=== PATIENT | male | born 1945 | race Caucasian/White ===

== ENCOUNTER 2023-05-05 11:52 | Day surgery (SDC) | payer OTHER ==
[~2023-05-05] VITALS: Ht 184 cm; Wt 94.6 kg
[2023-05-05] VITALS (7 sets, daily range): BP systolic 98–120; BP diastolic 68–81
[~2023-05-05 11:52] MED LIST: ASPI81CH PO; METF500 PO
[2023-05-05] MEDS ORDERED: Ventolin/Prove6.7 GM INH (12:32)
--- NOTE | 2023-05-05 12:50 | NUR ---
History, Chart, Medications and Allergies reviewed before start of procedure. Ambulatory in Day Surgery. Pre-Op teaching done. Pt verbalizes understanding. Patient confirms NPO status and agrees with scheduled surgery. Patient States Post-Procedure ride home has been arranged.
--- NOTE | 2023-05-05 13:48 | NUR ---
05/05/23 1348 Mani Elias History, Chart, Medications and Allergies reviewed before start of procedure.MONITOR INTACT WITH CONTINUOUS PULSE OXIMETRY, CONTINUOUS END TITAL CO2, AND INTERMITTENT BLOOD PRESSURE.
--- NOTE | 2023-05-05 14:35 | NUR ---
Patient up to Ambulate independently. Gait steady. Discharge instructions reviewed with patient. Patient verbalizes understanding. Copy given to patient to take home. Dressing to procedure site clean, dry, intact with no visible drainage, swelling, erythema or bruising noted. Discharge via ambulation.
[2023-05-05 14:41] LABS: Automated BF RBC Count 0.006 M/mm3 (0-0); Automated BF WBC Count 4.747 K/mm3 (0-999)
[2023-05-05 14:42] LABS: Body Fluid WBC Count 4747 /mm3 (0-999); RBC Count, Body Fluid 6000 /mm3 (0-0)
[2023-05-05 14:55] LABS: Albumin, Body Fluid 2.7 g/dL; Glucose, Body Fluid 81 mg/dL; Lactate Dehydrogenase, Body Fl 351 U/L; Protein, Body Fluid 5.1 g/dL; Triglycerides, Body Fluid 26 mg/dL
[2023-05-05 14:58] LABS: pH, Body Fluid 7.7
[2023-05-05 15:12] LABS: Appearance, Body Fluid Hazy (Clear); Color, Body Fluid Yellow (None-Yellow); Total Cell Count, Body Fluid 100
== END 2023-05-05 23:18 | disposition home or self-care (01) ==
LOC: ORSCMMR 11:52 → ORD 11:52 → ORSCMMR 11:53 → ORD 13:00
PROVIDERS: Student in an Organized Health Care Education/Training Program
PROC: 0W993ZX Drainage of Right Pleural Cavity, Percutaneous Approach, Diagnostic (ICD-10-PCS; principal; 2023-05-05 13:00)
DX: J90 Pleural effusion, not elsewhere classified (principal); J41.1 Mucopurulent chronic bronchitis; C34.91 Malignant neoplasm of unspecified part of right bronchus or lung; R63.4 Abnormal weight loss; F17.210 Nicotine dependence, cigarettes, uncomplicated; Z79.899 Other long term (current) drug therapy
CPT/HCPCS: 71045; 82042; 82945; 82947; 83615; 83986; 84157; 84478; 87070; 87075; 87205; 88108; 88305; 88341; 88342; 89051; C1751

== ENCOUNTER 2023-06-04 11:46 | Day surgery (SDC) | payer OTHER ==
[2023-06-04] VITALS (11 sets, daily range): BP systolic 107–135; BP diastolic 61–102
[~2023-06-04 11:46] MED LIST changes: +Ventolin/Prove6.7 GM INH
--- NOTE | 2023-06-04 14:14 | NUR ---
06/04/23 1414 Mani Elias History, Chart, Medications and Allergies reviewed before start of procedure.MONITOR INTACT WITH CONTINUOUS PULSE OXIMETRY, CONTINUOUS END TITAL CO2, AND INTERMITTENT BLOOD PRESSURE.O2 VIA N/C INTACT THROUGHOUT SEDATION/PROCEDURE. DR TUCKER AT BEDSIDE.
--- NOTE | 2023-06-04 14:44 | NUR ---
Discharge instructions reviewed with patient. Patient verbalizes understanding. Copy given to patient to take home. Pt only recieved a local. Ambulatory out of Day Surgery.
== END 2023-06-04 14:40 | disposition home or self-care (01) ==
LOC: ORD 11:46 → ORSCMMR 11:46 → ORD 11:47 → ORSCMMR 11:49 → ORD 11:49 → ORSCMMR 14:40
PROVIDERS: Student in an Organized Health Care Education/Training Program
PROC: 0W993ZZ Drainage of Right Pleural Cavity, Percutaneous Approach (ICD-10-PCS; principal; 2023-06-04 13:00)
DX: J91.0 Malignant pleural effusion (principal); R06.02 Shortness of breath
CPT/HCPCS: 71045; C1751

== ENCOUNTER 2023-07-16 12:52 | Day surgery (SDC) | payer OTHER ==
[~2023-07-16] VITALS: Ht 190.5 cm; Wt 89.0 kg
[2023-07-16 13:53] VITALS: BP 107/68
--- NOTE | 2023-07-16 13:59 | NUR ---
LUNGS DIMINISHED T/O TO AUSCULTATION, ESPECIALLY RLL POSTERIOR. NO WHEEZING AUSCULTATED.
[2023-07-16] MEDS ORDERED: MORP20L PO (14:04)
[2023-07-16] MEDS ORDERED: Ativan1 MG PO (14:05)
[2023-07-16] MEDS ORDERED: GUAI200 PO (14:06)
[2023-07-16 14:16] VITALS: BP 108/60
[2023-07-16 14:45] VITALS: BP 115/82
[2023-07-16 15:05] VITALS: BP 101/65
[2023-07-16 15:16] VITALS: BP 111/53
--- NOTE | 2023-07-16 15:26 | NUR ---
07/16/23 1526 Mynra Catalan O2 VIA N/C INTACT THROUGHOUT SEDATION/PROCEDURE. PT TOLERATED PROCEDURE WELL. CXR DONE IN ROOM IMMEDIATELY FOLLOWING. BANDAID PLACED OVER SITE BY MONITOR INTACT WITH CONTINUOUS PULSE OXIMETRY, CONTINUOUS END TITAL CO2, AND INTERMITTENT BLOOD PRESSURE.
--- NOTE | 2023-07-16 15:51 | NUR ---
Pt had some nausea upon sitting up. It subsided after 5min, vitals stable. Pt verbilized he was confidenent to discharge. Discharge instructions reviewed with patient. Patient verbalizes understanding. Copy given to patient to take home. Patient States Post-Procedure ride home has been arranged. Discharged via wheelchair to private car for ride home.
== END 2023-07-16 15:35 | disposition home or self-care (01) ==
LOC: ORSCMMR 12:52 → ORD 13:30 → ORSCMMR 15:35
PROVIDERS: Student in an Organized Health Care Education/Training Program
PROC: 0W993ZZ Drainage of Right Pleural Cavity, Percutaneous Approach (ICD-10-PCS; principal; 2023-07-16 13:30)
DX: J91.0 Malignant pleural effusion (principal); R06.02 Shortness of breath; Z79.899 Other long term (current) drug therapy
CPT/HCPCS: 71045; C1751

== ENCOUNTER 2023-08-11 11:03 | Day surgery (SDC) | payer OTHER ==
[~2023-08-11] VITALS: Ht 185.4 cm; Wt 82.9 kg
[2023-08-11] VITALS (15 sets, daily range): BP systolic 85–120; BP diastolic 49–86
[~2023-08-11 11:03] MED LIST changes: +Ativan1 MG PO; +GUAI200 PO; +Lactated Ringer's 1,000 ML IV SCH; +MORP20L PO
[2023-08-11] MEDS ORDERED: PROM25 PO (11:38)
--- NOTE | 2023-08-11 11:41 | NUR ---
PT HERE BY W/C WITH . Patient confirms NPO status and agrees with scheduled surgery. Pre-Op teaching done. Pt verbalizes understanding. History, Chart, Medications and Allergies reviewed before start of procedure.Lungs clear,DIMINISHED to Auscultation. Patient States Post-Procedure ride home has been arranged.
--- NOTE | 2023-08-11 11:43 | NUR ---
NO IV PER DR, DISCUSSED RISKS,ORDER PLACED FOR NO IV. PT IS HOSPICE.
--- NOTE | 2023-08-11 12:34 | NUR ---
08/11/23 1234 Osvaldo Lockhart History, Chart, Medications and Allergies reviewed before start of procedure.MONITOR INTACT WITH CONTINUOUS PULSE OXIMETRY, CONTINUOUS END TITAL CO2, AND INTERMITTENT BLOOD PRESSURE.3-LEAD EKG REVIEWED WITH PHYSICIAN PRIOR TO START OF PROCEDURE.
--- NOTE | 2023-08-11 12:54 | NUR ---
Patient up to Ambulate independently. Gait steady. Discharge instructions reviewed with patient. Patient verbalizes understanding. Copy given to patient to take home, WELL . Patient States Post-Procedure ride home has been arranged. Discharged via wheelchair to private car for ride home.
== END 2023-08-11 12:54 | disposition home or self-care (01) ==
LOC: ORSCMMR 11:03 → ORD 11:30 → ORSCMMR 12:54
PROVIDERS: Student in an Organized Health Care Education/Training Program
PROC: 0W993ZX Drainage of Right Pleural Cavity, Percutaneous Approach, Diagnostic (ICD-10-PCS; principal; 2023-08-11 11:30)
DX: J91.8 Pleural effusion in other conditions classified elsewhere (principal); J91.0 Malignant pleural effusion; R06.02 Shortness of breath; Z79.84 Long term (current) use of oral hypoglycemic drugs; Z79.899 Other long term (current) drug therapy; F17.210 Nicotine dependence, cigarettes, uncomplicated
CPT/HCPCS: 71045; C1751